=== PATIENT | female | born 1960 | race Two or more races ===

== ENCOUNTER 2023-07-23 16:50 | Emergency (ER) | payer MEDICAID, OTHER ==
[~2023-07-23] VITALS: Ht 167.6 cm; Wt 100.0 kg
[2023-07-23 16:52] VITALS: PULSE 91
[2023-07-23 17:15] VITALS: BP 178/95; RESP 18; TEMP 99; O2SAT 100
[2023-07-23 18:48] LABS: ALANINE AMINOTRANSFERASE 15 IU/L (10-49); ALBUMIN 4.1 g/dL (3.2-4.8); ASPARTATE AMINOTRANSFERASE 15 IU/L (<34); BILIRUBIN TOTAL 0.3 mg/dL (0.1-1.0); CALCIUM 9.1 mg/dL (8.7-10.4); CARBON DIOXIDE 27 mEq/L (21-32); CHLORIDE 106 mEq/L (98-107); CREATININE 0.7 mg/dL (0.6-1.0); GLUCOSE 94 mg/dL (70-105); POTASSIUM 3.8 mEq/L (3.5-5.1); PROTEIN TOTAL 7.5 g/dL (6.0-8.3); SODIUM 139 mEq/L (136-145); UREA NITROGEN BLOOD 11 mg/dL (9-23)
[2023-07-23 19:09] LABS: BASOPHILS % 1.1 % (0.0-2.0); EOSINOPHILS % 3.3 % (0.0-5.0); HEMATOCRIT. 42.8 % (36.0-48.0); HEMOGLOBIN. 14.1 g/dL (12.0-16.0); LYMPHOCYTES % 33.1 % (20.0-50.0); MEAN CORPUSCULAR HEMOGLOBIN 27.7 pg (28.0-32.0); MEAN CORPUSCULAR HGB CONC 32.9 g/dL (31.0-37.0); MEAN CORPUSCULAR VOLUME 84.2 fL (81.0-99.0); MEAN PLATELET VOLUME 10.2 fl (7.4-10.4); MONOCYTES % 6.9 % (2.0-8.0); NEUTROPHILS % 55.6 % (40.0-76.0); PLATELET 242 x1000/uL (130-400); RED BLOOD CELL COUNT 5.08 mill/uL (4.2-5.4); RED CELL DISTRIBUTION WIDTH 13.6 % (11.6-14.6); WHITE BLOOD COUNT 8.4 x1000/uL (4.5-11.0)
[2023-07-23 19:29] LABS: TROPONIN I HIGH SENSITIVITY < 4 ng/L (3.0-34)
== END 2023-07-23 22:03 | disposition home or self-care (01) ==
LOC: ER 16:50
DX: H53.8 Other visual disturbances (principal); R07.89 Other chest pain; I10 Essential (primary) hypertension; Z98.890 Other specified postprocedural states; Z91.041 Radiographic dye allergy status
CPT/HCPCS: 36415; 71045; 80053; 84484; 85025; 93005; 99285

== ENCOUNTER 2025-06-09 02:26 | Inpatient (IN) | payer MEDICARE, MEDICAID ==
[~2025-06-09] VITALS: Ht 165.1 cm; Wt 104.3 kg
[2025-06-09 02:32] VITALS: O2SAT 100
[2025-06-09 03:03] LABS: PLATELET 248 x1000/uL (130-400); RED BLOOD CELL COUNT 5.10 mill/uL (4.2-5.4); RED CELL DISTRIBUTION WIDTH 14.2 % (11.6-14.6)
[2025-06-09 03:14] LABS: CREATININE 1.0 mg/dL (0.6-1.0); UREA NITROGEN BLOOD 14 mg/dL (9-23)
[2025-06-09 03:15] LABS: TROPONIN I HIGH SENSITIVITY < 4 ng/L (3.0-34)
[2025-06-09 03:16] LABS: ASPARTATE AMINOTRANSFERASE 12 IU/L (<34); BILIRUBIN TOTAL 0.3 mg/dL (0.1-1.0); PROTEIN TOTAL 7.0 g/dL (6.0-8.3)
[2025-06-09] MEDS ORDERED: T3 PO (03:45)
[2025-06-09] MEDS: KETOROLAC 15MG/ML VIAL IM ONE (03:49)
[2025-06-09] MEDS: HYDROCODONE/ACETAMINOPHEN 5/325MG TABLET PO ONE (03:50)
[2025-06-09 04:05] LABS: CLARITY URINE CLEAR (CLEAR); COLOR URINE YELLOW (YELLOW); GLUCOSE URINE NEGATIVE (NEGATIVE); KETONES URINE NEGATIVE (NEGATIVE); LEUKOCYTE ESTERASE URINE NEGATIVE (NEGATIVE); NITRITE URINE NEGATIVE (NEGATIVE); OCCULT BLOOD URINE NEGATIVE (NEGATIVE); PH URINE 6.5 (4.5-8.0); PROTEIN URINE NEGATIVE (NEGATIVE); SPECIFIC GRAVITY URINE 1.019 (1.005-1.030); UROBILINOGEN URINE 0.2 E.U./dL (0.2-1.0)
[2025-06-09] MEDS: MORPHINE SULFATE 4 MG/ML INJ (FOR IV/IM USE) IV ONE (05:05)
[2025-06-09] MEDS: ONDANSETRON HCL 4MG/2ML INJ IV ONE (05:05)
[2025-06-09] MEDS: HYDRALAZINE 20MG/ML VIAL IV PRN (06:41)
[2025-06-09 07:00] VITALS: BP 158/85; PULSE 68; RESP 18; TEMP 36.4736
[2025-06-09 08:00] VITALS: BP 158/85; PULSE 68; RESP 18; TEMP 36.4; O2SAT 98
[2025-06-09] MEDS ORDERED: ONDANSETRON HCL 4MG/2ML INJ IV PRN (11:00)
[2025-06-09] MEDS ORDERED: OMEP20CA14 PO (11:11)
[2025-06-09] MEDS ORDERED: ENAL-79 PO (11:11)
[2025-06-09] MEDS ORDERED: HYDR-4009 PO (11:11)
[2025-06-09 12:00] VITALS: BP 161/79; PULSE 70; RESP 18; TEMP 35.7; O2SAT 100
[2025-06-09] MEDS: POTASSIUM CHLORIDE 20MEQ TABLET SR PO SCH (12:58)
[2025-06-09] MEDS: KETOROLAC 15MG/ML VIAL IV PRN (12:58)
[2025-06-09] MEDS: AMLODIPINE 10MG TABLET PO SCH (12:59)
[2025-06-09] MEDS ORDERED: LETR2.5T7 PO (13:10)
[2025-06-09] MEDS ORDERED: VITA250012 MT (13:14)
[2025-06-09] MEDS ORDERED: HYDRALAZINE 10 MG in SODIUM CHLORIDE 0.9% 49.5 ML IV PRN (15:00)
[2025-06-09 16:00] VITALS: BP 150/130; PULSE 64; RESP 18; TEMP 36.3; O2SAT 99
[2025-06-09] MEDS ORDERED: DICL100G46 TP (16:59)
[2025-06-09] MEDS ORDERED: OMEP40CA20 PO (16:59)
[2025-06-09] MEDS ORDERED: TERB250T88 PO (16:59)
[2025-06-09] MEDS ORDERED: ALBU2.5V13 NEB (16:59)
[2025-06-09] MEDS ORDERED: INFLUENZA VACCINE 05/PF 0.5 ML SYRINGE IM ONE (17:45)
[2025-06-09 20:00] VITALS: BP 126/71; PULSE 73; RESP 18; TEMP 36.6; O2SAT 97
[2025-06-09] MEDS: ENOXAPARIN 30MG/0.3ML SYR SUBCUT SCH (21:11)
[2025-06-10] VITALS: BP 146/83; PULSE 69; RESP 18; TEMP 36.4; O2SAT 99
[2025-06-10 08:00] VITALS: BP 146/84; PULSE 68; RESP 18; TEMP 36.4; O2SAT 99
[2025-06-10 12:00] VITALS: BP 134/72; PULSE 76; RESP 18; TEMP 36.6; O2SAT 95
[2025-06-10] MEDS: LACTULOSE 20G/30ML UDC PO SCH (15:39)
[2025-06-10 16:00] VITALS: BP 161/87; PULSE 74; RESP 18; TEMP 36.8; O2SAT 98
[2025-06-10 20:00] VITALS: BP 145/81; PULSE 75; RESP 18; TEMP 36.5; O2SAT 97
[2025-06-11] VITALS: BP 146/82; PULSE 71; RESP 18; TEMP 36.6; O2SAT 96
[2025-06-11 08:00] VITALS: BP 141/70; PULSE 73; RESP 17; TEMP 37.5; O2SAT 98
[2025-06-11 12:00] VITALS: BP 178/94; PULSE 117; RESP 19; TEMP 36.9; O2SAT 98
[2025-06-11 16:00] VITALS: BP 164/98; PULSE 118; RESP 20; TEMP 37.1; O2SAT 96
[2025-06-11] MEDS: SORBITOL 70% SOLN 30ML PO SCH (17:15)
[2025-06-11 20:00] VITALS: BP 145/86; PULSE 89; RESP 20; TEMP 36.6; O2SAT 97
[2025-06-12 08:00] VITALS: BP 138/82; PULSE 72; RESP 16; TEMP 36.2; O2SAT 98
[2025-06-12 12:45] VITALS: BP 135/78; PULSE 83; RESP 18; TEMP 97.5
[2025-06-12 12:52] VITALS: BP 135/78; PULSE 83; RESP 18; TEMP 97.5
== END 2025-06-12 13:16 | disposition home or self-care (01) | DRG 446 ==
LOC: ER 02:26 → 6EST 05:21 → EDBEDREQTM 05:24 → EDBEDREQ 05:24 → ENRESERV 06:01
PROVIDERS: ADMIT Internal Medicine; ATTEND Internal Medicine
DX: K80.60 Calculus of gallbladder and bile duct with cholecystitis, unspecified, without obstruction (principal); E66.9 Obesity, unspecified; I10 Essential (primary) hypertension; E87.6 Hypokalemia; Z85.3 Personal history of malignant neoplasm of breast; Z90.710 Acquired absence of both cervix and uterus; Z79.811 Long term (current) use of aromatase inhibitors; Z91.041 Radiographic dye allergy status; Z68.38 Body mass index [BMI] 38.0-38.9, adult
CPT/HCPCS: 36415; 71045; 76705; 80053; 81003; 84484; 85027; 93005; 93970; 96372; 96374; 96375; 99285; A4606; J0360; J1650; J1885; J2270; J2405